=== PATIENT | female | born 1995 | race African-American/Black ===

== ENCOUNTER 2016-09-07 22:51 | Outpatient (CLI) | payer OTHER ==
[2016-09-07 23:19] LABS: APPEARANCE HAZY (CLEAR); BACTERIA MODERATE /hpf (NONE SEEN); BILIRUBIN NEGATIVE (NEGATIVE); COLOR YELLOW (YELLOW); GLUCOSE NEGATIVE (NEGATIVE); KETONE NEGATIVE (NEGATIVE); LEUKOCYTE ESTERASE 2+ (NEGATIVE); NITRITE POSITIVE (NEGATIVE); PROTEIN NEGATIVE (NEGATIVE); RED CELLS - URINE 0-5 /hpf (0-5); SPECIFIC GRAVITY 1.015 (1.005-1.020); UROBILINOGEN NORMAL (NORMAL); WHITE CELLS - URINE 25-50 /hpf (0-5)
[2016-09-07] MEDS ORDERED: PRENATAL COMPLE1 TAB PO (23:50)
== END 2016-09-07 23:57 ==
LOC: D.LDO 22:51 → D.LD 23:37 → D.LDO 23:57
PROVIDERS: Obstetrics & Gynecology
DX: Z34.03 Encounter for supervision of normal first pregnancy, third trimester (principal); Z3A.36 36 weeks gestation of pregnancy

== ENCOUNTER → 2016-09-14 21:11 | Outpatient (CLI) | payer OTHER ==
[~2016-09-14 21:11] MED LIST: FERROUS SULFAT325 MG PO; PRENATAL COMPLE1 TAB PO
[2016-09-14 22:11] LABS: APPEARANCE HAZY (CLEAR); COLOR YELLOW (YELLOW); LEUKOCYTE ESTERASE 2+ (NEGATIVE); SPECIFIC GRAVITY 1.015 (1.005-1.020)
[2016-09-14 22:12] LABS: BILIRUBIN NEGATIVE (NEGATIVE); GLUCOSE NEGATIVE (NEGATIVE); KETONE NEGATIVE (NEGATIVE); NITRITE POSITIVE (NEGATIVE); PROTEIN NEGATIVE (NEGATIVE); UROBILINOGEN NORMAL (NORMAL)
[2016-09-14 22:13] LABS: BACTERIA MANY /hpf (NONE SEEN); EPITHELIAL CELLS 0-5 /hpf (0-5); RED CELLS - URINE 0-5 /hpf (0-5); WHITE CELLS - URINE 25-50 /hpf (0-5)
== END | disposition home or self-care (01) ==
LOC: D.LDO 21:11
PROVIDERS: Obstetrics & Gynecology
DX: Z34.03 Encounter for supervision of normal first pregnancy, third trimester (principal); Z3A.37 37 weeks gestation of pregnancy

== ENCOUNTER → 2016-09-17 09:57 | Outpatient (CLI) | payer OTHER ==
[2016-09-17 11:28] LABS: BASOPHILS 0.1 % (0-2); EOSINOPHILS 0 % (0-7); HEMATOCRIT 35.4 % (36.0-48.0); HEMOGLOBIN 11.6 g/dL (12-16); IMMATURE GRANULOCYTES 0.5 % (0-5); LYMPHOCYTES 6.4 % (15-50); MCH 30.1 pg (26.0-34.0); MCHC 32.8 g/dL (31.0-37.0); MCV 91.9 fL (80.0-100.0); MEAN PLATELET VOLUME 11.8 fL (7.4-10.4); MONOCYTES 16.1 % (2-11); NEUTROPHILS 76.9 % (40-80); PLATELET COUNT 180 10x3/uL (130-400); RBC 3.85 10x6/uL (4.00-5.40); WBC 16.8 10x3/uL (4.8-10.8)
[2016-09-17 11:41] LABS: ANION GAP 22.8 mmol/L (8-16); CALCIUM 9.4 mg/dL (8.5-10.1); CARBON DIOXIDE 16.5 mmol/L (21.0-32.0); CREATININE - SERUM 1.2 mg/dL (0.6-1.3); POTASSIUM - SERUM 3.3 mmol/L (3.5-5.1)
[2016-09-17 11:45] LABS: APPEARANCE CLOUDY (CLEAR); BACTERIA MODERATE /hpf (NONE SEEN); BILIRUBIN NEGATIVE (NEGATIVE); COLOR YELLOW (YELLOW); GLUCOSE NEGATIVE (NEGATIVE); KETONE LARGE mg/dL (NEGATIVE); LEUKOCYTE ESTERASE TRACE (NEGATIVE); MUCUS <1+ /lpf (NONE SEEN); NITRITE NEGATIVE (NEGATIVE); PROTEIN 2+ mg/dL (NEGATIVE); RED CELLS - URINE 0-5 /hpf (0-5); UROBILINOGEN NORMAL (NORMAL)
[2016-09-17 15:31] LABS: APPEARANCE CLEAR (CLEAR); BILIRUBIN NEGATIVE (NEGATIVE); COLOR YELLOW (YELLOW); GLUCOSE NEGATIVE (NEGATIVE); KETONE LARGE mg/dL (NEGATIVE); LEUKOCYTE ESTERASE 1+ (NEGATIVE); NITRITE NEGATIVE (NEGATIVE); PROTEIN TRACE mg/dL (NEGATIVE); SPECIFIC GRAVITY 1.015 (1.005-1.020); UROBILINOGEN NORMAL (NORMAL)
[2016-09-17 15:33] LABS: WHITE CELLS - URINE 25-50 /hpf (0-5)
[2016-09-17 15:34] LABS: BACTERIA MANY /hpf (NONE SEEN)
== END | disposition home or self-care (01) ==
LOC: D.LDO 09:57
PROVIDERS: Obstetrics & Gynecology
DX: Z34.03 Encounter for supervision of normal first pregnancy, third trimester (principal); Z3A.37 37 weeks gestation of pregnancy; R19.7 Diarrhea, unspecified; R11.2 Nausea with vomiting, unspecified

== ENCOUNTER → 2016-09-23 17:24 | Outpatient (CLI) | payer SELFPAY ==
[2016-09-23 18:13] LABS: APPEARANCE TURBID (CLEAR); BILIRUBIN NEGATIVE (NEGATIVE); COLOR YELLOW (YELLOW); GLUCOSE NEGATIVE (NEGATIVE); KETONE NEGATIVE (NEGATIVE); LEUKOCYTE ESTERASE 2+ (NEGATIVE); NITRITE NEGATIVE (NEGATIVE); PROTEIN 2+ mg/dL (NEGATIVE); SPECIFIC GRAVITY 1.005 (1.005-1.020); UROBILINOGEN NORMAL (NORMAL)
[2016-09-23 18:16] LABS: BACTERIA MANY /hpf (NONE SEEN); RED CELLS - URINE >50 /hpf (0-5); WHITE CELLS - URINE >50 /hpf (0-5)
== END | disposition home or self-care (01) ==
LOC: D.LDO 17:24
PROVIDERS: Obstetrics & Gynecology
DX: O26.893 Other specified pregnancy related conditions, third trimester (principal); Z3A.38 38 weeks gestation of pregnancy

== ENCOUNTER 2016-10-03 19:44 | Inpatient (IN) | payer MEDICAID ==
[~2016-10-03] VITALS: Ht 142.2 cm; Wt 57.2 kg
[2016-10-03 20:17] LABS: APPEARANCE CLOUDY (CLEAR); BILIRUBIN NEGATIVE (NEGATIVE); COLOR YELLOW (YELLOW); GLUCOSE NEGATIVE (NEGATIVE); KETONE NEGATIVE (NEGATIVE); LEUKOCYTE ESTERASE 2+ (NEGATIVE); NITRITE POSITIVE (NEGATIVE); PROTEIN NEGATIVE (NEGATIVE); UROBILINOGEN NORMAL (NORMAL)
[2016-10-03 20:19] LABS: BACTERIA MODERATE /hpf (NONE SEEN); RED CELLS - URINE 0-5 /hpf (0-5); WHITE CELLS - URINE 25-50 /hpf (0-5)
[2016-10-04 02:50] LABS: HEMATOCRIT 40.1 % (36.0-48.0); HEMOGLOBIN 12.5 g/dL (12-16); MCH 29.8 pg (26.0-34.0); MCHC 31.2 g/dL (31.0-37.0); MCV 95.5 fL (80.0-100.0); MEAN PLATELET VOLUME 11.5 fL (7.4-10.4); RBC 4.2 10x6/uL (4.00-5.40); RDW 14.3 % (11.5-14.5); WBC 9.5 10x3/uL (4.8-10.8)
[2016-10-04 04:47] VITALS: BP 103/78
--- NOTE | 2016-10-04 04:48 | NUR ---
RCVD PT FROM PACU. PT DENIES PAIN. SMALL DIME SIZE CLOT NOTED ON PERIPAD. PADS CHANGED, CLEAN LINENS DOWN. PT UNABLE TO FEEL BLE. SCD'S ON, CONNECTED TO PUMP AND PUMP FUNCTIONING. HR-RRR, PPP, BREATH SOUNDS CLEAR & UNLABORED X2. PIV TO LT HAND PATENT WITH NO SIGNS OF ERYTHEMA OR EDEMA. PT DENIES NEEDS. WILL CONT. PP CARE.
--- NOTE | 2016-10-04 05:16 | NUR ---
400ML CLEAR YELLOW URINE EMPTIED FROM CARLOS CATH. PT DROWSY BUT RATES PAIN 7/10. STAFF CONSULTANT TEACHING DONE AT THIS TIME. PT VERBALIZES UNDERSTANDING AND DENIES NEED TO PRESS BUTTON. WILL CONT. TO MONITOR.
[2016-10-04 05:29] VITALS: BP 109/67; Ht 142.2 cm; Wt 57.2 kg
--- NOTE | 2016-10-04 06:09 | NUR ---
PT LYING ON BACK. EYES CLOSED, RESP EVEN & UNLABORED. PT LEFT UNDISTURBED. VSS.
[2016-10-04 06:26] VITALS: BP 104/59
--- NOTE | 2016-10-04 06:27 | NUR ---
ROUNDS MADE. PT LYING ON BACK. EYES CLOSED, RESP EVEN & UNLABORED. PT AROUSES WITH LIGHT VERBAL STIMULI, BUT REMAINS DROWSY. VSS. WILL CONT TO MONITOR.
--- NOTE | 2016-10-04 07:30 | NUR ---
PT IS LYING IN BED, HOLDING BABY. SHE IS FEEDING BABY. BABY IS LYING BESIDE PT FLAT AND SHE IS FEEDING HER A BOTTLE. EDUCATED PT ABOUT NOT LYING BABY FLAT AND HOLDING HER WHEN SHE FEEDS HER AND HOLDING HER HEAD UP. GEN- AWAKE AND ALERT. LUNGS- CLEAR. HEART- RRR. ABD- SOFT WITH TENDERNESS NOTED. LOW TRANSVERSE INCISION WITH PRIMAPORE DRESSING INTACT. NO DRAINAGE NOTED ON DRESSING. EXT- SCD'S INTACT- FEET WARM PULSES PALPABLE. CARLOS INTACT. GOOD URINE OUTPUT WITH URI COLORED URINE NOTED. IV PATENT R HAND NS WITH PIT INFUSING AT 125 CC/HR WITH DILAUDID TIP FIXER. BED IS LOW, SIDE RAILS UP AND CALL LIGHT IN REACH.
--- NOTE | 2016-10-04 08:30 | NUR ---
PT IS LYING IN BED SLEEPING. BED IS LOW, SIDE RAILS UP AND CALL LIGHT IN REACH.
--- NOTE | 2016-10-04 10:00 | NUR ---
PT IS SLEEPING. BED IS LOW, SIDE RAILS UP X 2 AND CALL LIGHT IN REACH.
--- NOTE | 2016-10-04 11:24 | NUR ---
PT IS STILL SLEEPING. FOB AND FRIEND AT BEDSIDE. BED IS LOW. SIDE RAILS UP X 2 AND CALL LIGHT IN REACH. CARLOS INTACT. IV PATENT.
--- NOTE | 2016-10-04 13:30 | NUR ---
PT OFFERS N0 COMPLAINTS. IV WAS SALINE LOCKED.
[2016-10-04 14:01] LABS: BASOPHILS 0.1 % (0-2); EOSINOPHILS 0 % (0-7); IMMATURE GRANULOCYTES 0.4 % (0-5); LYMPHOCYTES 9.2 % (15-50); MCH 30.1 pg (26.0-34.0); MCHC 32.6 g/dL (31.0-37.0); MEAN PLATELET VOLUME 10.9 fL (7.4-10.4); MONOCYTES 5.6 % (2-11); NEUTROPHILS 84.7 % (40-80); PLATELET COUNT 239 10x3/uL (130-400); RDW 13.9 % (11.5-14.5)
[2016-10-04 14:05] LABS: HEMATOCRIT 30.7 % (36.0-48.0); MCV 92.5 fL (80.0-100.0); RBC 3.32 10x6/uL (4.00-5.40); WBC 15.6 10x3/uL (4.8-10.8)
--- NOTE | 2016-10-04 15:00 | NUR ---
D/C CARLOS PER ORDERS. REMOVED 10ML OF SALINE TO DEFLATE BULB. CARLOS CATHETER INTACT AND REMOVED WITHOUT COMPLICATIONS. PT WAS INSTRUCTED TO CALL WHEN SHE FELT THE URGE TO VOID AND WE WOULD ASSIST HER TO RESTROOM AND HER NEXT 3 VOIDS WOULD BE MEASURED. PT VERBALIZED UNDERSTANDING.
--- NOTE | 2016-10-04 15:36 | NUR ---
PT REQUESTED PAIN MED. GIVEN NORCO 10/325 AND MOTRIN 600MG.
--- NOTE | 2016-10-04 16:00 | NUR ---
PT UP TO BATHROOM. SHE VOIDED 450 CC BLOOD TINGED URINE. SHE REPLACED HER PAD AND PUT ON MESH PANTIES. LINENS CHANGED. PT TOLERATED WELL.
--- NOTE | 2016-10-04 17:41 | NUR ---
PT IS SITTING UP ON THE SIDE OF THE BED. SHE IS DOING WELL . SHE IS FEEDING BABY. STATES SHE FEELS BETTER SINCE SHE HAS GOTTEN UP. FOB AT BEDSIDE.
[2016-10-04 19:54] VITALS: BP 113/59
--- NOTE | 2016-10-04 19:54 | NUR ---
ASSESSMENT PER FLOW SHEET, VS OBTAINED, SALINE LOCK IN RIGHT HAND, FF, ML, U/U, PT REPORTS LITE BLEEDING WITH A FEW STRINGY CLOTS, BIKINI INC WITH SMALL DRESSING CDI WITH NO DRAIANGE NOTED, PT DENIES FLATUS, NO BM AND VOIDING BY SELF WITH NO DIFFICULTY, PT INST TO USE BR Q2-3HRS AND TO LET ME KNOW WHEN VOIDS, PT VERBALIZES UNDERSTANDING, PT C/O INC PAIN, ADM NORCO PO PER MD ORDERS, SEE EMAR, PT DENIES FURTHER NEEDS AT THIS TIME
--- NOTE | 2016-10-04 20:34 | NUR ---
PT UP IN BR AT THIS TIME, PT RATES INC PAIN 05/25, DENIES NEEDS AT THIS TIME, FOB AND BABY IN ROOM
--- NOTE | 2016-10-04 21:00 | NUR ---
PT RESTING AT THIS TIME, FOB, BROTHER, AND BABY IN OPEN CART AT BEDSIDE
--- NOTE | 2016-10-04 22:12 | NUR ---
PT AWAKE, HOLDING BABY, BEDDING PROVIDED TO FOB AND BROTHER, PT RATES INC PAIN 04/27, DENIES NEEDS AT THIS TIME
[2016-10-04 23:40] VITALS: BP 98/67
--- NOTE | 2016-10-04 23:40 | NUR ---
PT HOLDING BABY, VS OBTAINED, RATES INC PAIN 2/10, DENIES NEED FOR PAIN MED, PT INST TO USE CALL LIGHT WHEN NEEDING PAIN MED, PT VERBALIZES UNDERSTANDING, REQUESTED AND SERVED APPLE JUICE, DENIES FURTHER NEEDS, FOB AND BROTHER ASLEEP AT BEDSIDE
--- NOTE | 2016-10-05 00:30 | NUR ---
PT AWAKE, DENIES NEED FOR PAIN MED, FOB AND BROTHER ASLEEP AT BEDSIDE
--- NOTE | 2016-10-05 01:16 | NUR ---
PT MANAGER OF SOFTWARE LIGHT, REQUESTS PAIN MED NOW, C/O INC PAIN AND CRAMPING, ADM MOTRIN AND NORCO PO PER MD ORDERS WITH FRESH H20, PT DENIES FURTHER NEEDS
--- NOTE | 2016-10-05 02:09 | NUR ---
BOTTLE PROVIDED TO PT FOR FEEDING, PT RATES INC PAIN AND CRAMPING 2/10, DENIES NEEDS AT THIS TIME, FOB AND BROTHER ASLEEP AT BEDSIDE
--- NOTE | 2016-10-05 04:05 | NUR ---
PT HOLDING BABY, DENIES NEEDS AT THIS TIME, FOB ASLEEP IN RECLINER, BROTHER AWAKE AT BEDSIDE WITH PT
--- NOTE | 2016-10-05 05:42 | NUR ---
PT AWAKE, HOLDING BABY, ASKED PT ABOUT LAST DOSE ON MED REC, PT DENIES NEEDS OR PAIN AT THIS TIME, FOB AND BROTHER ASLEEP AT BEDSIDE
[2016-10-05 06:18] LABS: BASOPHILS 0.2 % (0-2); EOSINOPHILS 0.3 % (0-7); HEMATOCRIT 27.1 % (36.0-48.0); HEMOGLOBIN 8.6 g/dL (12-16); IMMATURE GRANULOCYTES 0.5 % (0-5); LYMPHOCYTES 16.8 % (15-50); MCH 29.8 pg (26.0-34.0); MCHC 31.7 g/dL (31.0-37.0); MCV 93.8 fL (80.0-100.0); MEAN PLATELET VOLUME 11.1 fL (7.4-10.4); MONOCYTES 10.7 % (2-11); NEUTROPHILS 71.5 % (40-80); PLATELET COUNT 231 10x3/uL (130-400); RBC 2.89 10x6/uL (4.00-5.40); RDW 14.1 % (11.5-14.5)
--- NOTE | 2016-10-05 07:00 | NUR ---
SHIFT REPORT TO DL ALDANA RN
[2016-10-05 07:25] LABS: RAPID PLASMA REAGIN Non Reactive (Non Reactive)
--- NOTE | 2016-10-05 07:30 | NUR ---
PT WAS RECEIVED THIS AM SITTING UP IN BED HOLDING BABY. SHE OFFERS NO COMPLAINTS. GEN- AWAKE AND ALERT. LUNGS CLEAR. HEART- RRR. ABD- SOFT WITH TENDERNESS. LOW TRANSVERSE INCISION CLEAN DRY AND INTACT. SARAH INTACT. SMALL LOCIA RUBRA. EXT- NO EDEMA NOTED. SALINE LOCK PATENT R HAND. BED IS LOW, SIDE RAILS UP X 2 AND CALL LIGHT IN REACH.
[2016-10-05 07:45] VITALS: BP 108/69
--- NOTE | 2016-10-05 08:51 | NUR ---
PT IS UP TO TAKE SHOWER. SHE OFFERS NO COMPLAINTS. SHE IS WANTING TO KNOW WHEN SHE WILL BE DISCHARGED. DR DIEHL HERE TO SEE BABY AND BABY HAS BEEN DISCHARGED. LINENS PARTIALLY CHANGED SINCE PT IS GOING HOME TODAY.
--- NOTE | 2016-10-05 09:03 | NUR ---
PT IS SITTING UP IN BED HOLDING BABY. SHE OFFERS NO COMPLAINTS. FAMILY MEMBER AT BEDSIDE.
--- NOTE | 2016-10-05 09:25 | NUR ---
PT REQUEST PAIN MED. SHE STATES PAIN IS IN HER ABDOMEN. RATES PAIN A 6. FMAILY AT BEDSIDE.
[2016-10-05 10:13] LABS: BASOPHILS 0.2 % (0-2); EOSINOPHILS 0.3 % (0-7); HEMATOCRIT 25.9 % (36.0-48.0); HEMOGLOBIN 8.2 g/dL (12-16); IMMATURE GRANULOCYTES 0.4 % (0-5); LYMPHOCYTES 15.9 % (15-50); MCH 29.8 pg (26.0-34.0); MCHC 31.7 g/dL (31.0-37.0); MCV 94.2 fL (80.0-100.0); MEAN PLATELET VOLUME 11.2 fL (7.4-10.4); MONOCYTES 8.4 % (2-11); NEUTROPHILS 74.8 % (40-80); PLATELET COUNT 233 10x3/uL (130-400); RBC 2.75 10x6/uL (4.00-5.40); RDW 14.2 % (11.5-14.5); WBC 11.2 10x3/uL (4.8-10.8)
--- NOTE | 2016-10-05 11:11 | NUR ---
PT OFFERS NO COMPLAINTS. BED IS LOW, SIDE RAILS UP X 2 AND CALL LIGHT IN REACH
--- NOTE | 2016-10-05 12:30 | NUR ---
SALINE LOCK REMOVED. TIP INTACT
--- NOTE | 2016-10-05 14:00 | NUR ---
PT IS UP AMBUALTING IN ROOM. PT BACK TO BED AND HOLDING BABY. BS+ INCISION CLEAN AND DRY. SARAH INTACT. BED IS LOW. SIDE RAILS UP X 2 AND CALL LIGHT IN REACH.
--- NOTE | 2016-10-05 15:44 | NUR ---
1530 PT REQUEST PAIN MED. GIVEN. SHE IS IN TEARS WITH PAIN LOWER R ABD. SHE GOT UP TO GO TO THE BATHROOM. SHE HAS BEEN AMBULATING IN ROOM BUT ENCOURAGED TTO WALK IN HALLWAYS A COUPLE OF TIMES TODAY.
--- NOTE | 2016-10-05 15:45 | NUR ---
PT WAS TRANSFERRED TO LABOR AND DELIVERY 1273. ;REPORT GIVEN TO ANANT COSBY.
--- NOTE | 2016-10-05 16:37 | NUR ---
PT STATES THAT IS FEELING BETTER AFTER WALKING ABOUT. WARM TEA GIVEN TO HELP WOTH GAS PAIN.
--- NOTE | 2016-10-05 17:00 | NUR ---
VISITOR AT DESK AND REQUESTING THAT SALINE LOCK BE REMOVED. THIS NURSE REVIEWS HEMOGRAMS. VS DONE. REPORT TO DR BUSCH- ORDER FOR REPEAT HEMOGRAM IN AM. SALINE LOCK NOT FLUSH EASILY- SALINE LOCK REMOVED.
[2016-10-05 17:25] VITALS: BP 116/67
--- NOTE | 2016-10-05 17:35 | NUR ---
UP IN SHOWER- TOLERATED WELL. NO COMPLAINTS.
[2016-10-05 19:26] VITALS: BP 110/55
--- NOTE | 2016-10-05 19:26 | NUR ---
RCVD PT FROM AM SHIFT. PT LYING ON BACK WITH UP IN ARMS. PT RATES PAIN 5/10 CURRENTLY, BUT DENIES NEED FOR PAIN MEDICATION. HR-RRR, PPP, FUNDUS FIRM, ML, U/1. SCANT LOCHIA RUBRA ON PERIPAD. BLE WITH SARAH C/D/I. PERIPAD PLACED OVER INCISION TO KEEP DRY. PT REPORTS NO FLATUS OR BM. EDU PT ON IMPORTANCE OF AMBULATION. PT REPORTS ONLY WALKING IN ROOM. DISCUSSED NEED TO WALK THE [place] WITH PT TO TRY AND GET GAS MOVING. PT VERBALIZED UNDERSANDING AND IS AGREEABLE. PT DENIES NEEDS. NBN IN ROOM TO ASSESS INFANT. FOB REMAINS AT BEDSIDE. BED LOW, WHEELS LOCKED, CL IN REACH, SIDE RAILS UP X2.
--- NOTE | 2016-10-05 21:41 | NUR ---
MOTRIN 600MG X1 TAB AND NORCO 10/325 MG X1 TAB GIVEN FOR PAIN RATED 7/10 IN ABD INCISIONAL AND GAS PAINS. PT REPORTS INCREASED BLEEDING WHEN VOIDING, BUT LOCHIA ON PAD SCANT. ADV PT THAT BEING SEDENTARY IN BED AND THEN GETTING UP ALLOWS GRAVITY TO MOVE THE LOCHIA MORE. PT VERBALIZED UNDERSTANDING AND ALSO REPORTED NO CLOTS. PT REPORTS WILL AMB IN [place] AFTER PAIN MEDICATION GIVEN. FOB IN ROOM WITH INFANT UP IN ARMS. PT DENIES FURTHER NEEDS.
--- NOTE | 2016-10-05 22:03 | NUR ---
PT AMB IN [place]. REPORTS PAIN 07/25. DENIES NEEDS AT THIS TIME. PT REPORTS WILL GO BACK TO ROOM AND "GET SOME REST."
[2016-10-05 23:57] VITALS: BP 106/51
--- NOTE | 2016-10-05 23:57 | NUR ---
ROUNDS MADE. PT SITTING UP IN BED. FOB SLEEPING ON CHAIR @ BEDSIDE. PT REPORTS STILL UNABLE TO PASS NORMA AND REQUESTS [facility] [place] [employer]. PT REPORTS PAIN IS 'A LITTLE BETTER AFTER WALKING SOME.' ADV PT TO KEEP AMBULATING IN ORDER TO GET GAS TO MOVE. PT VERBALIZED UNDERSTANDING. VSS. PT DENIES FURTHER NEEDS.
--- NOTE | 2016-10-06 02:35 | NUR ---
ROUNDS MADE. PT SITTING UP IN BED WITH INFANT UP IN ARMS. PT DENIES PAIN OR NEEDS. PT STATES "I THINK I'M GOING TO TRY TO GET UP AND WALK IN A MIN." ADV PT TO CALL OUT IF PAIN MEDICINE IS NEEDED. PT VERBALIZED UNDERSTANDING.
--- NOTE | 2016-10-06 04:52 | NUR ---
PT LYING ON BACK. HOB 30 DEGREES. EYES CLOSED. RESP =/X2. FOB SLEEPING ON BEDSIDE CHAIR. PT LEFT UNDISTURBED AT THIS TIME.
--- NOTE | 2016-10-06 06:29 | NUR ---
ROUNDS MADE. PT LYING ON BACK, HOB 30 DEGREES WITH EYES CLOSED, RESP EVEN & UNLABORED. FOB SLEEPING ON BEDSIDE CHAIR. PT LEFT UNDISTURBED.
[2016-10-06 06:53] LABS: HEMATOCRIT 25.2 % (36.0-48.0); HEMOGLOBIN 8.1 g/dL (12-16); MCH 29.9 pg (26.0-34.0); MCHC 32.1 g/dL (31.0-37.0); MEAN PLATELET VOLUME 10.9 fL (7.4-10.4); RBC 2.71 10x6/uL (4.00-5.40); RDW 14.3 % (11.5-14.5); WBC 10.9 10x3/uL (4.8-10.8)
[2016-10-06 07:00] VITALS: BP 113/65
--- NOTE | 2016-10-06 07:00 | NUR ---
REC'D PT AWAKE LYING IN BED. PAIN AND NEEDS ASSESSED. PT REPORTS ABD/INCISIONAL PAIN 09/24. SHIFT ASSESSMENT COMPLETED. SEE FLOWSHEET. PAIN MEDICATED W/MOTRIN 600MG AND NORCO 10/325MG ONE TAB GIVEN. SEE EMAR.
--- NOTE | 2016-10-06 08:00 | NUR ---
ROUNDS MADE FOR PAIN REASSESSMENT. PT CURRENTLY LYING AWAKE IN BED W/ UP IN ARMS. PT RATES PAIN 0/10 AT REST. PT DENIES NEEDS AT THIS TIME.
--- NOTE | 2016-10-06 10:00 | NUR ---
ROUNDS MADE. PT UP AMBULTING IN ROOM W/INFANT UP IN ARMS. PAIN AND NEEDS ASSESSED. PT REPORTS SIMETHICONE HELPED W/GAS PAIN AND PT IS NOW PASSING FLATUS. DENIES PAIN OF ANY KIND AT PRESENT. DECLINES OFFERS TO BRING HER ANYTHING TO EAT OR DRINK AT THIS TIME.
--- NOTE | 2016-10-06 11:30 | NUR ---
DR BUSCH ON UNIT AND TO PT'S ROOM. ORDERS REC'D.
--- NOTE | 2016-10-06 11:50 | NUR ---
ROUNDS MADE TO ASSESS PT'S PAIN AND NEEDS. PT REPORTS PAIN 3/10 AND REQUEST WARM TEA TO DRINK. PT MEDICATED W/NORCO 10/325MG ONE TAB AND WARM TEA SERVED. PT DENIES FURTHER NEEDS AT THIS TIME. FAMILY AT BEDSIDE.LUNCH TRAY SERVED. CONTINUE W/DISCHARGE PLANS.
--- NOTE | 2016-10-06 12:19 | NUR ---
THIS RN TO BEDSIDE FOR DISCHARGE TEACHING.DI FOR PP CARE OF C-SECTIN;PP DEPRESSION;MEDICATION INSTRUCTIONS;COMMUNITY RESOURCE LIST PROVIDED. PFW CARD PROVIDED W/PT INSTRUCTIONS FOR PT TO CALL ON SATURDAY MORNING TO MAKE FOLLOW UP WITH DR CASTELLANOS. PRESCRITIONS FOR NORCO 10-325MG AND MOTRIN PROVIDED. PT DENIES QUESTIONS AT THIS TIME. PT VERBALZIES UNDERSTANDING OF DISCHARGE AND IS AWARE THAT IS DISCHARGED A PT OF NOW. DENIES NEEDS AT PRESENT. SIG OTHER PRESENT FOR DISCHARGE TEACHING.
--- NOTE | 2016-10-06 13:30 | NUR ---
RN OBSERVES INFANT PLACED APPROPRIATELY IN CARSEAT. PT DISCHARGED HOME. PT AND INFANT TRANSPORTED VIA W/C TO AWAITING VEHICLE TO BE DRIVEN HOME BY SIG OTHER.
== END 2016-10-06 13:30 | disposition home or self-care (01) | DRG 766 ==
LOC: D.LDO 19:44 → D.LD 23:49 → D.LDO 10-04 02:41 → D.WS 10-04 02:42 → D.LD 10-04 02:42 → D.WS 10-04 04:34 → D.LD 10-05 16:00
PROVIDERS: Obstetrics & Gynecology; ADMIT Obstetrics & Gynecology
PROC: 10D00Z1 Extraction of Products of Conception, Low, Open Approach (ICD-10-PCS; principal; 2016-10-04 03:06)
DX: O76 Abnormality in fetal heart rate and rhythm complicating labor and delivery (principal); O99.824 Streptococcus B carrier state complicating childbirth; Z3A.39 39 weeks gestation of pregnancy; Z37.0 Single live birth

== ENCOUNTER 2019-02-11 14:09 | Inpatient (IN) | payer MEDICAID ==
[~2019-02-11] VITALS: Ht 142.2 cm; Wt 59.0 kg
[2019-02-11] VITALS (10 sets, daily range): BP systolic 93–131; BP diastolic 52–72; Ht 142.2 cm; Wt 59.0 kg
[2019-02-11 16:51] LABS: HEMATOCRIT 28.9 % (36.0-48.0); HEMOGLOBIN 8.3 g/dL (12-16); MCH 22.6 pg (26.0-34.0); MCHC 28.7 g/dL (31.0-37.0); MCV 78.5 fL (80.0-100.0); MEAN PLATELET VOLUME 11.1 fL (7.4-10.4); RBC 3.68 10x6/uL (4.00-5.40); RDW 16.2 % (11.5-14.5)
--- NOTE | 2019-02-11 20:04 | NUR ---
PT IS BACK IN HER ROOM FROM C SECTION. HER BABY IS A GIRL. SHE IS NOT IN MUCH PAIN BUT SHE STATES SHE IS GETTING HER FEELING BACK FROM HER SPINAL. HER FUNDUS IS FIRM 2 ABOVE THE UMBILICUS. SMALL AMT OF BLEEDING NOTED. HEART SOUNDS ARE WNL, LUNGS ARE CLEAR, NO BOWEL SOUNDS HEARD AT THIS TIME. PT WILL BE ABLE TO GET UP ABOUT 0530. IV NS WITH PIT IS RUNNING AT 125 CC/HR IN HER LEFT AC. BONDING WITH BABY WELL. SCD'S ARE IN PLACE AND WORKING WELL. SHE HAS AN ICE PACK TO HER INCISION. LARGE WHITE INCISION HAS NOT DRAINAGE AT THIS TIME. PT HAS ONE UNIT OF PRBC IN THE LAB. HER MORNING LAB WILL DETERMINE IF SHE RECEIVES THE BLOOD. VS ARE CHARTED IN THE PROPER PLACE. PT HAS A SUPPORTIVE FAMILY AND A 2 YEAR OLD IN THE ROOM.
--- NOTE | 2019-02-11 22:39 | NUR ---
IV BEEPING, NEW BAG OF NS WITH PITOCIN HUNG VIA PUMP INFUSING AT 125 ML/HR, FRESH ICE PACK TO ABD, PT REQUESTED AND SERVED FRESH H20, PT RATES INC PAIN 09/24, PT INFORMED THAT PAIN MED WILL BE ADM WHEN DUE, PT VERBALIZES UNDERSTANDING, SCD'S CONTINUE ON AND WORKING PROPERLY, PT DENIES FURTHER NEEDS, FAMILY MEMBER HOLDING AT THIS TIME
[2019-02-12 00:15] VITALS: BP 115/56
--- NOTE | 2019-02-12 02:15 | NUR ---
PT IS DOING WELL. PT IS TRYING TO REST. THERE ARE THREE FAMILY MENBERS STAYING IN THE ROOM WITH PT. HER IV CONT TO INFUSE AT 125ML/HR. BABY IS IN THE CRIB AT PT BEDSIDE. PAIN IS BETTER.
[2019-02-12 04:20] VITALS: BP 117/67
--- NOTE | 2019-02-12 04:20 | NUR ---
rounding on patient. PT STATES SHE HAS A PAIN LEVEL OF 6 AT THIS TIME. SHE REQUESTED PAIN MEDS. SHE WAS GIVEN MORPHINE 4 MG AT 0414 IV. HER CARLOS WAS EMPTIED. PT HAD 1200 NL IN HER BAG. NO ODOR NOTED. SLIGHTLY CONCENTRATED. PT INCISION IS STILL WITHOUT DRAINAGE. VITAL SIGNS TAKEN AND WNL. PT REQUESTED SOMEO JELLO. SINCE SHE IS ON CLEAR LIQUIDS SHE GOT THE JELLO. PT IS ENCOURAGED TO REST WHILE BABY IS IN THE NURSERY.
[2019-02-12 06:56] LABS: BASOPHILS 0.2 % (0-2); EOSINOPHILS 0.8 % (0-7); HEMATOCRIT 24.5 % (36.0-48.0); IMMATURE GRANULOCYTES 0.5 % (0-5); LYMPHOCYTES 17.7 % (15-50); MCH 21.8 pg (26.0-34.0); MCHC 27.8 g/dL (31.0-37.0); MCV 78.5 fL (80.0-100.0); MEAN PLATELET VOLUME 10.7 fL (7.4-10.4); MONOCYTES 10.3 % (2-11); NEUTROPHILS 70.5 % (40-80); RBC 3.12 10x6/uL (4.00-5.40); RDW 16.3 % (11.5-14.5); WBC 10.3 10x3/uL (4.8-10.8)
[2019-02-12 06:57] LABS: HEMOGLOBIN 6.8 g/dL (12-16); PLATELET COUNT 232 10x3/uL (130-400)
--- NOTE | 2019-02-12 06:58 | NUR ---
LAB CALLED WITH A CRITICAL HEMAGLOBIN 6.8. HCT 24.5 THIS INFO WAS PASSED ON IN BEDSIDE REPORT.
[2019-02-12 07:23] VITALS: BP 114/64
--- NOTE | 2019-02-12 07:23 | NUR ---
RECEIVED PT LYING IN SEMI-HYDE'S POSITION IN BED. AWAKE. VSS. HRRR WITHOUT AUDIBLE MURMUR. BBS CLEAR. BS HYPOACTIVE X 4. ABDOMEN SOFT/NON-DISTENDED. FUNDUS FIRM AT U/1. RUBRA LOCHIA SCANT AMT. NO CLOTS NOTED. ABDOMINAL DRESSING DRY WITHOUT DRAINAGE NOTED. NEG HOMANS' SIGN. PPP. NO EDEMA NOTED TO BLE. PUMP ON. CARLOS TO GRAVITY DRAINING DARK, YELLOW URINE. PIV SITE CLEAR TO LEFT AC. NS WITH PITOCIN INFUSING. PT STATES C/O INCISIONAL PAIN OF "7" ON 0-10 PAIN SCALE. FRESH ICE PACK TO INCISION. CLEAR LIQUID DIET SERVED. SR UP X 2. CALL LIGHT IN REACH.
--- NOTE | 2019-02-12 07:32 | NUR ---
TORADOL 30 MG GIVEN SIVP OVER 2 MINUTES. PT INSTRUCTED ON MED. VERBALIZES UNDERSTANDING. PT STATES HAS HX OF BEING ANEMIC. STATES EATS ICE AND HAS CRAVINGS FOR ICE.
--- NOTE | 2019-02-12 09:10 | NUR ---
DR HART VISITS WITH PT. ORDERS RECEIVED.
--- NOTE | 2019-02-12 09:15 | NUR ---
PIV CONVERTED TO SALINE LOCK. FLUSHES EASILY WITH 10 ML NS. SITE CLEAR. CARLOS DC'D WITH 700 ML OF DARK, YELLOW URINE NOTED IN BAG. PT OOB AND AMB TO BR. VOIDS LESS THAN 50 ML OF BLOOD-TINGED URINE IN SPECIPAN. PERICARE DONE PER PT. PANTIES AND PAD ON. PT AMBULATES IN ROOM. SITS ON COUCH AT THIS TIME. ELIF ACTIVITY WELL.
--- NOTE | 2019-02-12 09:40 | NUR ---
VSS. NS STARTED VIA Y TUBING TO SL AT KVO RATE. SITE CLEAR.
--- NOTE | 2019-02-12 09:48 | NUR ---
PT SITTING UP ON COUCH. FIRST UNIT PACKED RBC'S VERIFIED WITH Oliver MENDEZ RN AND STARTED AT 75 ML/HR VIA ALARIS PUMP. PT INSTRUCTED ON S/S TO REPORT.
--- NOTE | 2019-02-12 11:20 | NUR ---
FIRST UNIT PACKED RBC'S COMPLETED. NS INFUSING TO FLUSH LINE.
--- NOTE | 2019-02-12 11:28 | NUR ---
PT C/O INCISIONAL PAIN OF "7" ON 0-10 PAIN SCALE. PERCOCET 5/325 2 TABS GIVEN PO ORDERED. PT INSTRUCTED ON MED. VERBALIZES UNDERSTANDING.
--- NOTE | 2019-02-12 11:40 | NUR ---
SECOND UNIT PACKED RBC'S VERIFIED WITH A ANDREA RN. STARTED AT 125 ML/HR VIA ALARIS PUMP. PIV SITE CLEAR. VSS. PT TOLERATING WELL.
--- NOTE | 2019-02-12 12:00 | NUR ---
PT SITTING UP IN BED. VSS. DENIES C/O.
--- NOTE | 2019-02-12 12:05 | NUR ---
PT STATES VOIDED, BUT EMPTIED SPECIPAN.
--- NOTE | 2019-02-12 12:57 | NUR ---
SECOND UNIT OF PACKED RBC'S FINISHED INFUSING. LINE FLUSHED WITH NS. SITE CLEAR. PT ELIF WELL.
--- NOTE | 2019-02-12 13:05 | NUR ---
PT UP TO SHOWER.
--- NOTE | 2019-02-12 13:32 | NUR ---
PT FINISHED WITH SHOWER. DRESSING REMOVED. INCISION WITHOUT REDNESS, SWELLING OR DRAINAGE NOTED. PERIPAD TO INCISION. PT ASSISTED WITH GOWN, PANTIES AND PAD. TORADOL 10 MG GIVEN PO ORDERED. PT INSTRUCTED ON MED. VERBALIZES UNDERSTANDING.
--- NOTE | 2019-02-12 13:50 | NUR ---
PT AMBULATORY IN HALLS. TOLERATING ACTIVITY WELL. STATES PASSING GAS.
--- NOTE | 2019-02-12 15:25 | NUR ---
PT AMBULATORY IN ROOM. CARING FOR INFANT. STATES CONTINUES TO PASS GAS.
--- NOTE | 2019-02-12 15:41 | NUR ---
PT C/O ABDOMINAL PAIN. INFORMED PAIN MED NOT DUE YET. INFORMED PT CAN HAVE MYLICON FOR GAS PAIN. PT AGREES. MYLICON 80 MG GIVEN PO ORDERED. PT INSTRUCTED TO NOTIFY NURSE IF PT PAIN DOES NOT IMPROVE AND PHONE CALL TO CAN BE MADE. PT VERBALIZES UNDERSTANDING.
--- NOTE | 2019-02-12 17:05 | NUR ---
PT SITTING UP IN BED. DENIES PAIN AT THIS TIME. DENIES NEEDS.
--- NOTE | 2019-02-12 17:34 | NUR ---
PT CALLS ON LIGHT. C/O ABDOMINAL PAIN OF "8" ON 0-10 PAIN SCALE. PERCOCET 5/325 2 TABS GIVEN PO ORDERED. PT STATES CONTINUES TO PASS GAS.
[2019-02-12 17:35] VITALS: BP 125/56
--- NOTE | 2019-02-12 18:30 | NUR ---
PT SITTING UP IN BED. CARING FOR INFANT. DENIES PAIN OR NEEDS.
--- NOTE | 2019-02-12 18:38 | NUR ---
PT STATES VOIDED EARLIER AND PT BROTHER EMPTIED SPECIPAN.
--- NOTE | 2019-02-12 19:39 | NUR ---
TESS ESPARZAN RN AT BEDSIDE DISCUSSING NB POC AND ANSWERING PT QUESTIONS. PT CURRENTLY BOTTLEFEEDING INFANT. INSTRUCTED TO NOTIFY RN WHEN FEEDING COMPLETED FOR SHIFT ASSESSMENT TO BE COMPLETED, VERBALIZES UNDERSTANDING. C/O INCISIONAL BURNING AND STINGING WITH ABD CRAMPING AND SORENESS 05/25, SCHEDULED TORADOL GIVEN. DENIES ADDITIONAL NEEDS. BED IN LOW POSITION WITH SRUP X2. CALL LIGHT AND PHONE WITHIN REACH. WILL CONTINUE TO MONITOR.
[2019-02-12 19:47] VITALS: BP 111/64
--- NOTE | 2019-02-12 19:47 | NUR ---
SHIFT ASSESSMENT COMPLETED PER FLOWSHEET. VSS. FUNDUS FIRM, MIDLINE AND U1 WITH SCANT RUBRA LOCHIA, NO CLOTS NOTED. PAIN 1-2/10 FOLLOWING TORADOL. SIGNIFICANT OTHER NOW AT BEDSIDE AND CARING FOR . LOWER TRANSVERSE ABD INCISION WELL APPROXIMATED WITH GLUE INTACT, NO DRAINAGE NOTED. CLEAN PERIPAD PLACED OVER INCISION. INCISIONAL CARE DISCUSSED WITH PT, VERBALIZES UNDERSTANDING. POC DISCUSSED WITH PT, VERBALIZES UNDERSTANDING AND DENIES QUESTIONS. REFUSES SCD'S. LOTION APPLIED TO BLE. LINENS PROVIDED FOR SIGNIFICANT OTHER. ICE WATER AND APPLE JUICE PROVIDED. REPORTS THAT SHE IS PASSING FLATUS AND VOIDING WITHOUT DIFFICULTY. BED IN LOW POSITION WITH SRUP X2. CALL LIGHT AND PHONE WITHIN REACH.
--- NOTE | 2019-02-12 20:08 | NUR ---
PAIN REASSESSMENT COMPLETED. REPORTS PAIN NOW /, DENIES NEEDS. INFANT IN ARMS. SIGNIFICANT OTHER RESTING ON COUCH. BED IN LOW POSITION WITH SRUP X2. CALL LIGHT AND PHONE WITHIN REACH.
--- NOTE | 2019-02-12 21:35 | NUR ---
PT REC'D IN BED AT THIS TIME. DISCUSSED IV REMOVAL WITH PT AT THIS TIME. PT STATES THAT SHE WOULD LIKE IV REMOVED BUT NOT IF SHE WOULD HAVE TO HAVE IT RESTARTED. PT INFORMED THAT IT IS UNKNOWN IF SHE WOULD NEED BLOOD AGAIN BUT IF SHE DID THE IV WOULD NEED TO BE RESTARTED. PT DECIDED TOO KEEP CURRENT IV SITE. NO OTHER NEEDS NOTED AT THIS TIME. Feng TURNER RN
--- NOTE | 2019-02-12 23:00 | NUR ---
PT REC'D IN BED AT THIS TIME. STATES PAIN LEVEL AT A 6 AT THIS TIME. PROVIDED WITH WATER AT THIS TIME. PT OFFERED PAIN MEDICATION AT THIS TIME. PT AGREEABLE. Feng TURNER RN
[2019-02-12 23:05] VITALS: BP 109/53
--- NOTE | 2019-02-12 23:05 | NUR ---
C/O INCISIONAL BURNING AND STINGING WITH ABD CRAMPING AND SORENESS, 09/24, 2 TABS PERCOCET GIVEN PER ORDER AND PT REQUEST. ICE WATER PROVIDED. VSS. FUNDUS FIRM, MIDLINE AND U1 WITH SCANT RUBRA LOCHIA, NO CLOTS NOTED. BACK TO NBN PER PT REQUEST. DENIES ADDITIONAL NEEDS. SIGNIFICANT OTHER RESTING ON COUCH AT BEDSIDE. BED IN LOW POSITION WITH SRUP X2. CALL LIGHT AND PHONE WITHIN REACH. WILL CONTINUE TO MONITOR.
--- NOTE | 2019-02-13 00:03 | NUR ---
PAIN REASSESSMENT COMPLETED. LAYING ON LEFT SIDE RESTING WITH EYES CLOSED. RESP REGULAR AND UNLABORED, NO S/S OF DISTRESS NOTED. BED IN LOW POSITION WITH SRUP X2. CALL LIGHT AND PHONE WITHIN REACH.
--- NOTE | 2019-02-13 01:32 | NUR ---
DENIES PAIN. SCHEDULED TORADOL GIVEN PER ORDER. ICE WATER PROVIDED. BACK TO ROOM PER PT REQUEST. PT NOTIFIED THAT WOULD NEED V/S AND WT CHECK PRIOR TO NEXT FEEDING AND TO NOTIFY RN OR NBN IF INFANT BEGINS TO FUSS. VERBALIZES UNDERSTANDING. DENIES ADDITIONAL NEEDS. BED IN LOW POSITION WITH SRUP X2. CALL LIGHT AND PHONE WITHIN REACH.
--- NOTE | 2019-02-13 02:27 | NUR ---
SITTING UP IN BED WATCHING TV. DENIES PAIN. PADS AND PANTIES PROVIDED. DENIES ADDITIONAL NEEDS. SIGNFICAT OTHER RESTING QUIETLY ON COUCH AT BEDSIDE. RESTING QUIETLY IN OPEN. BED IN LOW POSITION WITH SRUP X2. CALL LIGHT AND PHONE WITHIN REACH. WILL CONTINUE TO MONITOR.
--- NOTE | 2019-02-13 04:46 | NUR ---
C/O INCISIONAL BURNING AND STINGING AND ABD CRAMPING 3-/10. PERCOCET 1 TAB GIVEN PER ORDER AND PT REQUEST. VSS. FUNDUS REMAINS FIRM MIDLINE AND U1 WITH SCANT RUBRA LOCHIA, NO CLOTS NOTED. SANDWICH TRAY, APPLE SAUCE, PUDDING, AND APPLE JUICE PROVIDED. RESTING IN OPEN CRIB AT BEDSIDE. SIGNIFICANT OTHER RESTING QUIETLY ON COUCH. BED IN LOW POSITION WITH SRUP X2. CALL LIGHT AND PHONE WITHIN REACH.
[2019-02-13 04:47] VITALS: BP 124/58
--- NOTE | 2019-02-13 05:41 | NUR ---
RESTING QUIETLY LAYING ON LEFT SIDE WITH EYES CLOSED. RESP REGULAR AND UNLABORED, NO S/S OF DISTRESS NOTED. RESTING QUIETLY IN OPEN. BED IN LOW POSITION WITH SRUP X2. CALL LIGHT AND PHONE WITHIN REACH. SIGNIFICANT OTHER RESTING ON COUCH AT BEDSIDE.
--- NOTE | 2019-02-13 07:30 | NUR ---
TO ROOM FOR AM ASSESSMENT, PT IS RESTING WITH ERES CLOSED AND RESP EVEN, NO SIGNS OF DISTRESS, LEFT UNDISTURBED AT THIS TIME. INFANT IS IN CRIB AT BEDSIDE AND FOB ON COUCH SLEEPING. SIDE RAILS ARE UP X 2 AND CALL LIGHT WITH IN REACH.
--- NOTE | 2019-02-13 09:08 | NUR ---
PAIN REASSESSMENT PT RATES AT 3-6, STATES WHEN SHE GETS UP TO VOID PAIN IS 6/10. ADDITIONAL PAIN MED OFFERED AND SHE IS AGREEABLE.
--- NOTE | 2019-02-13 09:15 | NUR ---
AM ASSESSMENT COMPLETED CHARTED TO FLOWSHEET. TRANSVERSE BIKINI INCISION CLEAN AND DRY. FUNDUS FIRM AT U/1 LIGHT BLEEDING NOTED TO REBECCA PAD. PT ASK ABOUT ABDOMINAL BINDER, EXPLAINED THAT MD HAD ACTUALLY GIVEN ORDERS THIS AM ORDERS THIS AM FOR ONE AND NURSE WOULD BRING IT IN TO HER SOON RECEIVED FROM SUPPLY. SALINE LOCK REMOVED FROM LEFT AC PER PT REQUEST, SHE STATES THAT WHEN SHE BENDS HER ARM SHE NOTICES MORE TENDERNESS AROUND AREA. IV CATH NOTED TO BE INTACT AFTER REMOVEAL. STATES THAT PAIN IS NOW MORE 6/10, PAIN MED GIVEN SCANNED TO EMAR. IN CRIB AT BEDSIDE AND FOB ON COUCH. SIDE RAILS UP X 2 WITH CALL LIGHT IN REACH.
--- NOTE | 2019-02-13 10:00 | NUR ---
PAIN REASSESSMENT, PT RATES AT 2/10. SHE IS WALKING AROUND ROOM, NO NEEDS VOICED AT THIS TIME. INFANT IN CRIB AT BEDSIDE.
--- NOTE | 2019-02-13 14:30 | NUR ---
TORDAL GIVEN SCHEDULED, PT RATES PAIN AT 2/10. ADBOMINAL BINDER PLACED ON AND PT STATES UNDERSTANDING OF HOW AND WHEN TO USE. DENIES ANY QUESTIONS OR NEEDS AT THIS TIME.
[2019-02-13] MEDS ORDERED: IBUPROFEN800 MG PO (17:23)
[2019-02-13] MEDS ORDERED: PERCOCET 5-3251 TAB PO (17:24)
--- NOTE | 2019-02-13 17:30 | NUR ---
PT GATHERING PERSONNEL THINGS TOGATHER, BEING SECURED IN TO CARRIER. CALLED TO ROOM, PT REQUEST PAIN MED IF POSSIBLE.
--- NOTE | 2019-02-13 17:50 | NUR ---
PAIN MED GIVEN SCANNED TO EMAR. RATES PAIN AT INCISION AT 5/10.
--- NOTE | 2019-02-13 18:00 | NUR ---
VERBAL AND WRITTEN D/C INSTRUCTIONS GONE OVER WITH PT. SHE IS PROVIDED WITH PRINTED POST C/S INSTRUCTIONS AND WRITTEN SCIPTS FOR PERCOCET 5/325MG AND MOTRIN 800MG. NO QUESTIONS OR CONCERNS AND STATES UNDERSTANDING TO ALL INFO THAT HAS BEEN GIVEN. NURSERY NURSE AT BEDSIDE AND VERIFIES INFANT IS SECURED IN CARRIER. PT TAKEN OUT BY WHEELCHAIR, HOME BY PRIVATE CAR WITH SIG OTHER.
[2019-02-14 05:07] LABS: RAPID PLASMA REAGIN Non Reactive (Non Reactive)
--- NOTE | 2019-02-16 08:52 | OP ---
PATIENT NAME: AREN CARR MEDICAL RECORD: [id number] :96 LOCATION:[id number] ADMISSION DATE:02/11/19 SURGEON: TAM PIERCE DO DATE OF OPERATION: 02/11/2019 PREOPERATIVE DIAGNOSES: Previous section, in labor. POSTOPERATIVE DIAGNOSES: 1. Previous section, in labor. 2. Intra-abdominal adhesions. PRIMARY SURGEON: Tam Pierce DO [place] SURGEON: Not applicable. ANESTHESIA: Kd Camejo CRNA PROCEDURE: Repeat low transverse section via Pfannenstiel incision. FINDINGS: Female infant, weight 7 pounds 9 ounces, delivered at 1744, Apgars 9 and 9. Uterus completely adhered to the anterior abdominal wall, otherwise normal-appearing uterus, bilateral fallopian tubes and bilateral ovaries. SPECIMENS: Placenta and cord. ESTIMATED BLOOD LOSS: 800 mL. IV FLUIDS: 2300 cc. URINE OUTPUT: 400 cc of clear urine. COMPLICATIONS: None. CONDITION: Stable. PROCEDURE IN DETAIL: The risks, benefits, alternatives and indications of the procedure were discussed with the patient. She voiced understanding of this procedure and signed the consent. She was taken to the OR where spinal anesthesia was administered and found to be adequate. She was placed in the dorsal supine position with a leftward tilt. She was prepped and draped in the normal sterile fashion. A Pfannenstiel skin incision was made with a scalpel and carried down to the underlying layer of the fascia with the Bovie. The fascia was incised in the midline and extended laterally. The inferior aspect of the fascial incision was grasped with Bam clamps and the rectus muscle was dissected off sharply. Attention was then turned to the superior aspect of the fascial incision and the rectus muscle was dissected off in a similar fashion. The rectus muscle was in the midline down to the level of peritoneum. However, the uterus was noted to be completely adherent at the level of the rectus upon entrance into the peritoneum. The muscle was further with gentle traction. The uterus was then incised in a transverse fashion in the mid uterine area due to extensive intra-abdominal adhesions. The bladder blade was inserted prior to the incision on the uterus. The 's head was brought to the incision and the infant delivered with mild difficulty due to fibrotic tissue; however, no vacuum was needed. Mouth and nose were suctioned. Cord was clamped and cut and the was handed off to awaiting pediatricians. The OPERATIVE REPORT [id number] AREN CARR placenta was manually removed. The uterus was able to be exteriorized and a moist lap was used to assure complete removal of placental membranes. The hysterotomy was closed in a running locked fashion with 0 Vicryl suture with a double layer closure and good hemostasis. The posterior cul-de-sac was irrigated with warm sterile water. The uterus, tubes, and ovaries were otherwise noted to be normal and returned back to the abdominal cavity. A moist laparotomy sponge was used to assure complete removal of blood clots and fluid from the abdominal cavity. The hysterotomy was again reinspected and noted to be hemostatic. The rectus muscle was closed with 2-0 Monocryl in a running fashion with good hemostasis. The fascial incision was closed with 0 Vicryl in a running fashion with good hemostasis. The skin was closed in a subcuticular fashion with 3-0 Monocryl and Dermabond covering. All needle, lap, sponge, and instrument counts were correct times 2. The patient tolerated the procedure well and she was taken to recovery room in stable condition. TRANSINT:[id number] Voice Confirmation ID: [id number] DOCUMENT ID: [id number] TAM PIERCE DO at 0852 CC: [id number] DICTATION DATE: 02/11/191843 STORE STOCK ASSOCIATE: 02/11/192216 DIS IN 02/13/[address] [facility] [address] [place] [address]
== END 2019-02-13 18:00 | disposition home or self-care (01) | DRG 788 ==
LOC: D.LDO 14:09 → D.LD 15:51
PROVIDERS: ADMIT Student in an Organized Health Care Education/Training Program; ATTEND Student in an Organized Health Care Education/Training Program
PROC: 10D00Z1 Extraction of Products of Conception, Low, Open Approach (ICD-10-PCS; principal; 2019-02-11 15:00)
DX: O34.211 Maternal care for low transverse scar from previous cesarean delivery (principal); Z3A.38 38 weeks gestation of pregnancy; Z37.0 Single live birth; O99.89 Other specified diseases and conditions complicating pregnancy, childbirth and the puerperium; N73.6 Female pelvic peritoneal adhesions (postinfective)